=== PATIENT | female | born 2000 | race Two or more races ===

== ENCOUNTER → 2024-06-26 | Outpatient (CLI) | payer SELFPAY ==
[2024-06-26 10:48] LABS: HEMATOCRIT 39.6 % (36.0-47.0); HEMOGLOBIN 13.6 g/dl (12.0-15.5); MEAN CORPUSCULAR HEMOGLOBIN 31.1 pg (27.0-33.0); MEAN CORPUSCULAR HGB CONC 34.3 g/dl (32.0-36.5); MEAN CORPUSCULAR VOLUME 90.6 fl (80.0-96.0); PLATELET COUNT, AUTOMATED 230 10^3/uL (150-450); RED BLOOD COUNT 4.37 10^6/uL (4.00-5.40)
[2024-06-26 12:12] LABS: GC DNA AMPLIFICATION NEGATIVE (NEGATIVE)
[2024-06-26 15:52] LABS: HIV 1&2 SCREEN NEGATIVE (NEGATIVE)
[2024-06-26 15:59] LABS: HEPATITIS C VIRUS ABY INDEX < 0.02 INDEX (<0.8)
== END ==
LOC: M PLALAB 07:36
PROVIDERS: ATTEND Obstetrics & Gynecology
DX: Z31.430 Encounter of female for testing for genetic disease carrier status for procreative management (principal)

== ENCOUNTER → 2024-07-25 | Outpatient (REF) | payer SELFPAY | LOC: M SFHCWAGY 17:09 | PROVIDERS: ATTEND Obstetrics & Gynecology | DX: Z12.4 Encounter for screening for malignant neoplasm of cervix (principal); Z11.51 Encounter for screening for human papillomavirus (HPV); B37.9 Candidiasis, unspecified ==

== ENCOUNTER → 2024-09-06 | Outpatient (CLI) | payer SELFPAY | LOC: M WHC 09:52 | PROVIDERS: ATTEND Obstetrics & Gynecology | DX: Z34.02 Encounter for supervision of normal first pregnancy, second trimester (principal); Z3A.24 24 weeks gestation of pregnancy ==

== ENCOUNTER → 2024-09-17 | Outpatient (CLI) | payer SELFPAY ==
[2024-09-17 15:32] LABS: HEMATOCRIT 38.1 % (36.0-47.0); HEMOGLOBIN 12.8 g/dl (12.0-15.5); MEAN CORPUSCULAR HEMOGLOBIN 31.9 pg (27.0-33.0); MEAN CORPUSCULAR HGB CONC 33.6 g/dl (32.0-36.5); PLATELET COUNT, AUTOMATED 272 10^3/uL (150-450); RED BLOOD COUNT 4.01 10^6/uL (4.00-5.40); WHITE BLOOD COUNT 9.2 10^3/uL (4.0-10.0)
[2024-09-17 16:04] LABS: GLUCOSE CHALLENGE TEST 1 HOUR 92 MG/DL (LESS THAN 140)
[2024-09-17 16:41] LABS: HIV 1&2 SCREEN NEGATIVE (NEGATIVE)
[2024-09-17 16:50] LABS: HEPATITIS C VIRUS ABY INDEX < 0.02 INDEX (<0.8)
[2024-09-17 17:04] LABS: GC DNA AMPLIFICATION NEGATIVE (NEGATIVE)
== END ==
LOC: M PLALAB 11:38
PROVIDERS: ATTEND Nurse Practitioner Family
DX: Z34.92 Encounter for supervision of normal pregnancy, unspecified, second trimester (principal); Z3A.00 Weeks of gestation of pregnancy not specified

== ENCOUNTER → 2024-10-11 | Outpatient (CLI) | payer MEDICAID | LOC: M WHC 12:39 | PROVIDERS: ATTEND Nurse Practitioner Family | DX: Z34.02 Encounter for supervision of normal first pregnancy, second trimester (principal) ==

== ENCOUNTER → 2024-12-03 | Outpatient (REF) | payer OTHER ==
[~2024-12-03] MED LIST: ACET-907 PO; COLA100C5 PO; FIOR1CAP PO; PRENTAB9 PO; VALT1TAB PO; VALT500T PO
== END ==
LOC: M PLALAB 08:57
PROVIDERS: ATTEND Nurse Practitioner Family
DX: Z36.85 Encounter for antenatal screening for Streptococcus B (principal); Z3A.36 36 weeks gestation of pregnancy

== ENCOUNTER 2024-12-06 15:41 | Emergency (ER) | payer MEDICAID, OTHER, SELFPAY ==
[2024-12-06 15:48] VITALS: BP 135/80; TEMP 98.2; O2SAT 99
[2024-12-06] MEDS ORDERED: PRENTAB9 PO (16:08)
[2024-12-06] MEDS ORDERED: VALT1TAB PO (16:09)
[2024-12-06] MEDS ORDERED: VALT500T PO (16:09)
== END 2024-12-06 15:51 | disposition admitted as inpatient to this hospital (09) ==
LOC: M ED 15:41
DX: Z53.21 Procedure and treatment not carried out due to patient leaving prior to being seen by health care provider (principal)

== ENCOUNTER 2024-12-06 15:54 | Outpatient (CLI) | payer MEDICAID, OTHER, SELFPAY ==
[~2024-12-06] VITALS: Ht 175.3 cm; Wt 96.4 kg
[2024-12-06] MEDS ORDERED: PRENTAB9 PO (16:08)
[2024-12-06] MEDS ORDERED: VALT1TAB PO (16:09)
[2024-12-06] MEDS ORDERED: VALT500T PO (16:09)
[2024-12-06] MEDS ORDERED: HOME MED LIST COMPLETE! XX SCH (16:10)
[2024-12-06 16:14] VITALS: BP 129/77
[2024-12-06 16:30] VITALS: BP 121/73
[2024-12-06 16:45] VITALS: BP 100/61
[2024-12-06] MEDS: FIORICET TAB PO ONE (17:20)
== END 2024-12-06 18:33 | disposition home or self-care (01) ==
LOC: M LDO 15:54
PROVIDERS: ATTEND Advanced Practice Midwife
DX: O26.893 Other specified pregnancy related conditions, third trimester (principal); O98.311 Other infections with a predominantly sexual mode of transmission complicating pregnancy, first trimester; R51.9 Headache, unspecified; A60.04 Herpesviral vulvovaginitis; Z3A.37 37 weeks gestation of pregnancy
CPT/HCPCS: 59025; G0463

== ENCOUNTER 2024-12-10 12:04 | Outpatient (CLI) | payer MEDICAID, OTHER, SELFPAY ==
[~2024-12-10] VITALS: Ht 175.3 cm; Wt 97.2 kg
[~2024-12-10 12:04] MED LIST changes: -ACET-907 PO; -COLA100C5 PO; -FIOR1CAP PO
[2024-12-10 12:24] VITALS: BP 127/79
[2024-12-10] MEDS ORDERED: HOME MED LIST COMPLETE! XX SCH (12:25)
[2024-12-10 12:39] VITALS: BP 126/78
[2024-12-10 12:54] VITALS: BP 118/73
[2024-12-10 13:09] VITALS: BP 109/60
[2024-12-10 13:24] VITALS: BP 107/57
[2024-12-10 13:39] VITALS: BP 106/59
[2024-12-10 14:23] LABS: TOTAL PROTEIN,RANDOM URINE 9.2 MG/DL (0.0-14.0)
[2024-12-10 14:28] LABS: CREATININE,RANDOM URINE 53.1 MG/DL
[2024-12-10 14:37] LABS: HEMATOCRIT 37.7 % (36.0-47.0); HEMOGLOBIN 12.7 g/dl (12.0-15.5); MEAN CORPUSCULAR HEMOGLOBIN 29.5 pg (27.0-33.0); MEAN CORPUSCULAR HGB CONC 33.7 g/dl (32.0-36.5); MEAN CORPUSCULAR VOLUME 87.7 fl (80.0-96.0); PLATELET COUNT, AUTOMATED 229 10^3/uL (150-450)
[2024-12-10 15:02] LABS: URIC ACID 6.5 MG/DL (3.1-7.8)
[2024-12-10 15:04] LABS: LDH LACTATE DEHYDROGENASE 168 U/L (120-246)
[2024-12-10 15:05] LABS: ALT/SGPT 27 U/L (7.0-40); AST/SGOT 16 U/L (<34); BILIRUBIN,TOTAL 0.3 MG/DL (0.3-1.2); CREATININE FOR GFR 0.55 MG/DL (0.55-1.30); GLOMERULAR FILTRATION RATE > 60.0 (>60)
== END 2024-12-10 14:30 | disposition home or self-care (01) ==
LOC: M LDO 12:04
PROVIDERS: ATTEND Advanced Practice Midwife
DX: O16.3 Unspecified maternal hypertension, third trimester (principal); O98.313 Other infections with a predominantly sexual mode of transmission complicating pregnancy, third trimester; A60.04 Herpesviral vulvovaginitis; Z88.0 Allergy status to penicillin; Z3A.37 37 weeks gestation of pregnancy
CPT/HCPCS: 59025; 82247; 82570; 83615; 84156; 84450; 84460; 84550; 85027; G0463

== ENCOUNTER 2024-12-13 10:58 | Outpatient (CLI) | payer OTHER ==
[~2024-12-13] VITALS: Ht 175.3 cm; Wt 98.8 kg
[2024-12-13] VITALS (7 sets, daily range): BP systolic 117–139; BP diastolic 62–88
[2024-12-13] MEDS ORDERED: HOME MED LIST COMPLETE! XX SCH (11:20)
[2024-12-13] MEDS ORDERED: ACET-907 PO (11:20)
[2024-12-13] MEDS: FIORICET TAB PO ONE (12:21)
[2024-12-13 12:31] LABS: HEMATOCRIT 36.5 % (36.0-47.0); HEMOGLOBIN 12.3 g/dl (12.0-15.5); MEAN CORPUSCULAR HEMOGLOBIN 29.7 pg (27.0-33.0); MEAN CORPUSCULAR HGB CONC 33.7 g/dl (32.0-36.5); MEAN CORPUSCULAR VOLUME 88.2 fl (80.0-96.0); PLATELET COUNT, AUTOMATED 222 10^3/uL (150-450); RED BLOOD COUNT 4.14 10^6/uL (4.00-5.40); WHITE BLOOD COUNT 10.1 10^3/uL (4.0-10.0)
[2024-12-13 12:59] LABS: URIC ACID 6.5 MG/DL (3.1-7.8)
[2024-12-13 13:02] LABS: LDH LACTATE DEHYDROGENASE 167 U/L (120-246)
[2024-12-13 13:03] LABS: ALT/SGPT 21 U/L (7.0-40); AST/SGOT 12 U/L (<34); BILIRUBIN,TOTAL 0.2 MG/DL (0.3-1.2); CREATININE FOR GFR 0.57 MG/DL (0.55-1.30); GLOMERULAR FILTRATION RATE > 90.0 (>60)
[2024-12-13 13:04] LABS: CREATININE,RANDOM URINE 43.3 MG/DL
[2024-12-13 13:34] LABS: TOTAL PROTEIN,RANDOM URINE < 6.0 MG/DL (0.0-14.0)
[2024-12-13] MEDS ORDERED: FIOR1CAP PO (15:04)
== END 2024-12-13 14:45 | disposition home or self-care (01) ==
LOC: M LDO 10:58
PROVIDERS: ATTEND Obstetrics & Gynecology
DX: O26.23 Pregnancy care for patient with recurrent pregnancy loss, third trimester (principal); O98.313 Other infections with a predominantly sexual mode of transmission complicating pregnancy, third trimester; R03.0 Elevated blood-pressure reading, without diagnosis of hypertension; R51.9 Headache, unspecified; A60.04 Herpesviral vulvovaginitis; Z3A.38 38 weeks gestation of pregnancy
CPT/HCPCS: 36415; 59025; 76815; 82247; 82570; 83615; 84156; 84450; 84460; 84550; 85027; G0463

== ENCOUNTER 2024-12-14 12:28 | Outpatient (CLI) | payer OTHER ==
[~2024-12-14] VITALS: Ht 175.3 cm; Wt 99.5 kg
[~2024-12-14 12:28] MED LIST changes: +ACET-907 PO; +FIOR1CAP PO
[2024-12-14 12:47] VITALS: BP 135/83
[2024-12-14 13:14] VITALS: BP 142/85
== END 2024-12-14 13:25 | disposition home or self-care (01) ==
LOC: M LDO 12:28
PROVIDERS: ATTEND Advanced Practice Midwife
DX: O98.313 Other infections with a predominantly sexual mode of transmission complicating pregnancy, third trimester (principal); O13.3 Gestational [pregnancy-induced] hypertension without significant proteinuria, third trimester; A60.04 Herpesviral vulvovaginitis; Z88.0 Allergy status to penicillin; Z3A.38 38 weeks gestation of pregnancy
CPT/HCPCS: 59025; G0463

== ENCOUNTER 2024-12-16 19:46 | Inpatient (IN) | payer OTHER ==
[~2024-12-16] VITALS: Ht 175.3 cm; Wt 100.2 kg
[2024-12-16 20:58] LABS: HEMATOCRIT 35.5 % (36.0-47.0); HEMOGLOBIN 12.2 g/dl (12.0-15.5); MEAN CORPUSCULAR HEMOGLOBIN 29.8 pg (27.0-33.0); MEAN CORPUSCULAR HGB CONC 34.4 g/dl (32.0-36.5); MEAN CORPUSCULAR VOLUME 86.6 fl (80.0-96.0); PLATELET COUNT, AUTOMATED 219 10^3/uL (150-450); WHITE BLOOD COUNT 9.6 10^3/uL (4.0-10.0)
[2024-12-16] MEDS: miSOPROStol 50MCG 1/2 TABLET PO PRN (21:01)
[2024-12-16] MEDS ORDERED: HOME MED LIST COMPLETE! XX SCH (21:10)
[2024-12-16 21:49] LABS: HIV 1&2 SCREEN NEGATIVE (NEGATIVE)
[2024-12-16 21:57] LABS: HEPATITIS C VIRUS ABY INDEX 0.03 INDEX (<0.8)
[2024-12-17] VITALS (23 sets, daily range): BP systolic 97–172; BP diastolic 55–97
[2024-12-17] MEDS ORDERED: TRANEXAMIC ACID INJection 1,000 MG in NS 100 ML IV PRN (17:25)
[2024-12-17] MEDS ORDERED: OXYTOCIN DRIP 30 UNITS in IV 1 EA IV PRN (17:25)
[2024-12-17] MEDS ORDERED: CARBOPROST TROMETHAMINE 250 MCG/ML AMP IM PRN (17:25)
[2024-12-17] MEDS ORDERED: OXYTOCIN INJ 10UNITS/ML 1ML VIAL IM PRN (17:25)
[2024-12-17] MEDS ORDERED: LIDOCAINE 1% MDV 20ML VIAL INFIL PRN (17:25)
[2024-12-17] MEDS: OXYTOCIN DRIP 30 UNITS in IV 1 EA IV SCH (17:35)
[2024-12-17] MEDS: LR 1,000 ML IV SCH (17:35)
[2024-12-17] MEDS: BUTORPHANOL 2 MG/ML 1ML VIAL IV ONE (19:51)
[2024-12-17] MEDS: PROMETHAZINE 25MG/ML 1ML VIAL IV ONE (19:51)
[2024-12-18] VITALS (35 sets, daily range): BP systolic 106–151; BP diastolic 59–99; TEMP 99.1; O2SAT 97–98
[2024-12-18] MEDS ORDERED: diphenhydrAMINE 50MG/ML VIAL IV PRN (12:20)
[2024-12-18] MEDS ORDERED: NALOXONE INJ 0.4MG/1ML VIAL IV PRN (12:20)
[2024-12-18] MEDS ORDERED: ONDANSETRON 4MG 2ML VIAL IV PRN (12:20)
[2024-12-18] MEDS ORDERED: ePHEDrine SULFATE 25 MG/5 ML(5MG/ML) SYRINGE IVP PRN (12:20)
[2024-12-18] MEDS ORDERED: LR 500 ML IV PRN (12:20)
[2024-12-18] MEDS ORDERED: EPIDURAL/PCA KEYS XX PRN (12:20)
[2024-12-18] MEDS: FENTANYL/ROPIVACAINE/NACL BAG 100 ML EPIDURAL SCH (12:27)
[2024-12-18] MEDS: BICITRA 30ML SOLN UDC PO ONE (16:34)
[2024-12-18] MEDS: CLINDAMYCIN 900 MG in IV 1 EA IV ONE (16:34)
[2024-12-18] MEDS: GENTAMICIN 400 MG in D5W 100 ML IV ONE (17:05)
[2024-12-18] MEDS ORDERED: LIDOCAINE 2% W/EPINEPHRINE 20ML VIAL **PRES FREE As Ordered ONE (17:47)
[2024-12-18] MEDS ORDERED: ONDANSETRON 4MG 2ML VIAL As Ordered ONE (17:49)
[2024-12-18] MEDS ORDERED: METOCLOPRAMIDE INJ 10MG/2ML VIAL As Ordered ONE (17:49)
[2024-12-18] MEDS ORDERED: OXYTOCIN 30UNITS IN 0.9% NaCl 500ML IV BAG As Ordered ONE (17:51)
[2024-12-18] MEDS ORDERED: MORPHINE PRES-FREE INJ 10 MG/10 ML VIAL As Ordered ONE (18:00)
[2024-12-18] MEDS ORDERED: OXYTOCIN INJ 10UNITS/ML 1ML VIAL As Ordered ONE (18:28)
[2024-12-18 18:44] LABS: CORD GAS ABE A -1.8; CORD GAS HCO3 A 25.5 MMOL/L; CORD GAS O2 SAT A 56.1 %; CORD GAS PCO2 A 52.8 mmHg; CORD GAS PH A 7.302 UNITS; CORD GAS PO2 A 24.1 mmHg; CORD GAS SBC A 21.9 MMOL/L; CORD GAS TCO2 A 27.1 MMOL/L
[2024-12-18 18:45] LABS: CORD GAS ABE V -1.3; CORD GAS HCO3 V 24.1 MMOL/L; CORD GAS O2 SAT V 83.4 %; CORD GAS PCO2 V 42.5 mmHg; CORD GAS PH V 7.371 UNITS; CORD GAS PO2 V 37.2 mmHg; CORD GAS TCO2 V 25.4 MMOL/L
[2024-12-18] MEDS ORDERED: KETOROLAC 30 MG/ML 1ML VIAL As Ordered ONE (18:45)
[2024-12-18] MEDS: ACETAMINOPHEN 500 MG TAB PO ONE (19:30)
[2024-12-18] MEDS ORDERED: MOM 30ML SUSPENSION UDC PO PRN (19:45)
[2024-12-18] MEDS ORDERED: ACETAMINOPHEN 500 MG TAB PO PRN (19:45)
[2024-12-18] MEDS ORDERED: SIMETHICONE 80MG CHEW TAB PO PRN (19:45)
[2024-12-18] MEDS ORDERED: oxyCODONE 5MG TAB PO PRN ×2 (19:45)
[2024-12-18] MEDS ORDERED: RHOGAM 300MCG (1500IU) INJ IM SCH (19:45)
[2024-12-18] MEDS: DOCUSATE SODIUM 100MG CAPSULE PO SCH (21:00)
[2024-12-19] VITALS (8 sets, daily range): BP systolic 122–148; BP diastolic 68–90; O2SAT 96–99
[2024-12-19] MEDS: KETOROLAC 30 MG/ML 1ML VIAL IV SCH (00:30)
[2024-12-19 06:25] LABS: HEMATOCRIT 30.6 % (36.0-47.0); HEMOGLOBIN 10.2 g/dl (12.0-15.5); MEAN CORPUSCULAR HEMOGLOBIN 29.5 pg (27.0-33.0); MEAN CORPUSCULAR HGB CONC 33.3 g/dl (32.0-36.5); MEAN CORPUSCULAR VOLUME 88.4 fl (80.0-96.0); PLATELET COUNT, AUTOMATED 189 10^3/uL (150-450); RED BLOOD COUNT 3.46 10^6/uL (4.00-5.40); WHITE BLOOD COUNT 14.7 10^3/uL (4.0-10.0)
[2024-12-19] MEDS: PRENATAL VITAMINS CHEWABLE TABLET PO SCH (07:45)
[2024-12-19] MEDS: IBUPROFEN 800 MG TAB PO SCH (21:00)
[2024-12-20 01:59] VITALS: BP 133/82; O2SAT 98
[2024-12-20 05:57] VITALS: BP 125/80; O2SAT 99
[2024-12-20] MEDS: MEASLES,MUMPS,RUBELLA VACCINE INJ (MMR-II) SC.IMMUN ONE (08:06)
[2024-12-20] MEDS ORDERED: COLA100C5 PO (11:41)
== END 2024-12-20 14:22 | disposition home or self-care (01) | DRG 540 ==
LOC: M LDI 19:46 → M OBS 12-18 20:00
PROVIDERS: ADMIT Specialist; ATTEND Specialist
PROC: 3E0P7GC Introduction of Other Therapeutic Substance into Female Reproductive, Via Natural or Artificial Opening (ICD-10-PCS; 2024-12-17)
PROC: 3E033VJ Introduction of Other Hormone into Peripheral Vein, Percutaneous Approach (ICD-10-PCS; 2024-12-17)
PROC: 10D00Z1 Extraction of Products of Conception, Low, Open Approach (ICD-10-PCS; principal; 2024-12-18 17:15)
DX: O13.4 Gestational [pregnancy-induced] hypertension without significant proteinuria, complicating childbirth (principal); O61.0 Failed medical induction of labor; Z37.0 Single live birth; Z3A.38 38 weeks gestation of pregnancy; Z88.0 Allergy status to penicillin; O76 Abnormality in fetal heart rate and rhythm complicating labor and delivery